=== PATIENT | female | born 1975 | race Two or more races ===

== ENCOUNTER 2025-09-18 09:18 | Outpatient (CLI) | payer OTHER | END 2025-09-18 09:20 | disposition home or self-care (01) | LOC: SONOGRAMA 09:18 | PROVIDERS: ATTEND Pathology Anatomic Pathology | DX: D44.0 Neoplasm of uncertain behavior of thyroid gland (principal); E04.1 Nontoxic single thyroid nodule; R59.0 Localized enlarged lymph nodes ==